=== PATIENT | female | born 1975 | race American Indian/Alaskan Native ===

== ENCOUNTER 2016-10-20 08:24 | Emergency (ER) | payer MEDICAID ==
[2016-10-20 09:01] LABS: Basophils % (Auto) 0.3 % (0.0-1.8); Eosinophils % (Auto) 0.1 % (0.0-4.3); Hematocrit 36.6 % (30.3-42.9); Hemoglobin 12.2 gm/dl (10.1-14.3); Mean Corpuscular HGB Conc 33 % (30-34); Mean Corpuscular Hemoglobin 30 pg (28-32); Mean Corpuscular Volume 91 fl (79-97); Platelet Count 205 K/mm3 (140-440); Red Blood Count 4.03 M/mm3 (3.65-5.03); Red Cell Distribution Width 13.5 % (13.2-15.2); White Blood Count 12.1 K/mm3 (4.5-11.0)
[2016-10-20 09:21] LABS: Albumin 3.4 g/dL (3.9-5); Albumin/Globulin Ratio 0.8 %; BUN/Creatinine Ratio 10.83; Bilirubin,Total 0.7 mg/dL (0.1-1.2); Calcium 8.6 mg/dL (8.4-10.2); Chloride 100.6 mmol/L (98-107); Potassium 3.2 mmol/L (3.6-5.0); Total Protein 7.5 g/dL (6.3-8.2)
[2016-10-20 10:25] LABS: Bilirubin,Urine NEG (Negative); Blood,Urine LG (Negative); Ketones,Urine NEG (Negative); Leukocyte Esterase,Urine LG (Negative); Mucus,Urine 3+ /HPF; Nitrite,Urine NEG (Negative)
[2016-10-20 10:26] LABS: RBC,Urine > 182.0 /HPF (0.0-6.0); WBC,Urine > 182.0 /HPF (0.0-6.0)
--- NOTE | 2016-10-20 14:40 | Cat Scan Report ---
CT scan of abdomen and pelvis without IV contrast: History: Flank pain. Kidney stone. Findings: Normal lung bases. Multiple circumscribed centimeter and subcentimeter hypodensities throughout the liver probably suggestive of multiple cysts or hamartomas. Less likely metastasis. Multiple calculi within contracted gallbladder. Normal pancreas and spleen. Normal adrenals. There is 2 mm calculus upper pole right kidney. There is 2 mm calculus upper pole left kidney and adjacent 2 mm calculus lower part upper pole left kidney. No evidence of hydronephrosis. Bladder not visualized and probably decompressed. Moderate amount of free intraperitoneal fluid in the cul-de-sac. No mass. Grossly bowel gas pattern normal with evidence of stool in colon. No evidence of appendicitis or diverticulitis. Impression: Circumscribed hypodensities throughout liver probably cysts or hamartomas and less likely metastatic disease. Multiple calculi in the gallbladder. Nonobstructing calculi right and left kidney. Moderate amount of fluid in the posterior cul-de-sac.
[2016-10-20] MEDS ORDERED: TORADOL IV ONE (19:03)
[2016-10-20] MEDS ORDERED: ZOFRAN IV ONE (19:03)
[2016-10-20] MEDS ORDERED: NACL 0.9% 1000 ML 1,000 ML IV ONE (19:03)
[2016-10-20] MEDS ORDERED: ROCEPHIN 1,000 MG in NACL 0.9% 50 ML IV ONE (19:07)
--- NOTE | 2016-10-20 19:47 | Admit Criteria Form ---
Admission Criteria Documentation: VOMITING Clinical Indications for Admission to Inpatient Care ( Place 'X' for any and all applicable criteria): Admission is indicated for 1 or more of the following(1)(2)(3): [ ]I. Complete or partial gastrointestinal obstruction [ ]II. Vomiting due to significant metabolic derangement (eg, severe hypercalcemia, diabetic ketoacidosis) [ ]III. Other cause of vomiting requiring hospitalization (eg, poisoning, increased intracranial pressure) [X ]IV. Inpatient admission required rather than observation care because of 1 or more of the following [ ]i) Hemodynamic instability [X ]ii) Vomiting that is severe or persistent indicated by 1 or more of the following 1) Numerous episodes of vomiting in past 24hours (eg, every 1 to 2 hours) [X] 2) Suggests severe underlying cause or complication ( eg, projectile, feculent, bilious, coffee ground, bloody) 3) Appropriate antiemetic treatment (eg, repeated oral or parenteral dosing) does not sufficiently reduce vomiting within 12 to 24 hours of treatment 4) Treatment regimen necessary to adequately control vomiting requires inpatient level of care (eg, not immediately available in outpatient setting) [ ]iii) Severe electrolyte abnormalities requiring inpatient care [ ]iv) Severe pain requiring acute inpatient management( Continuous or frequent (eg, every 2 to 4 hours) parental analgesics or analgesic regimen that can only be performed or initiated in inpatient setting) [ ]v) High fever or infection requiring inpatient admission as indicated by 1 or more of the following(7)(8): [ ]1) Appropriate outpatient or observation care antimicrobial treatment unavailable, not effective, or not feasible [ ]2) Documented bacteremia [ ]3) Temp >104.9 degrees F (40.5 degrees C) (oral) [ ]4) Temp >103.1 degrees F (39.5 C) (oral) or <96.8 degrees F (36 C) (rectal) that does not respond to all emergency treatment measures [ ]vi) Acute renal failure [ ]vii) IV fluid required rather than oral rehydration to replace significant on going losses (greater than 3 L/m2 per day) [ ]viii) Parenteral nutrition regimen that must be implemented on inpatient basis [ ]ix) Other condition, treatment or monitoring requiring inpatient admission Extended stay beyond goal length of stay may be needed for(1)(4): [ ]a) Severe vomiting [ ]b) Persistent vomiting, vital sign changes, severe electrolyte imbalance , or diagnosed cause of vomiting that requires continued hospitalization (eg, gastrointestinal obstruction , increased intracranial pressure) [ ]c) Surgery to treat identified causes of vomiting (eg, bowel obstruction , intracranial process) [ ]d) Comorbid illness that requires inpatient care (eg, acute heart failure , renal failure) [ ]e) Need for inpatient endoscopy The original [employer] content created by [employer] has been revised. The portions of the content which have been revised are identified through the use of italic text or in bold, and [facility] has neither reviewed nor approved the modified material. All other unmodified content is copyright [employer] [facility]. Please see references footnoted in the original [employer] [facility] edition 2016 Admission Criteria Met: Yes
[2016-10-20] MEDS ORDERED: ROCEPHIN/NS 1 GM/50 ML 1 GM/50 ML BAG IV ONE (20:00)
--- NOTE | 2016-10-20 21:42 | Emergency Department Report ---
Addendum entered and electronically signed by LEXX MINA NP 10/20/16 22:07: pt again refusing admission for further evaluation of renal stones, gall stones , and liver cyst, explain symptoms to return to ecc, pt currently tolerating po intake, without n/v, pt is a/o x 3 demonstrates decision making capacity, advises that she will follow up with urology and GI as directed , pt given strict instructions again to return to emergency if symptoms worsen. Original Note: Entered by ANDREW GUO, acting as scribe for LEXX MINA NP. <LEXX MINA. - Last Filed: 10/20/16 21:23> ED N/V/D HPI - General Chief complaint: Nausea/Vomiting/Diarrhea Stated complaint: VOMITING/BODY PAIN Time Seen by Provider: 10/20/16 18:41 Source: patient Mode of arrival: Ambulatory Limitations: No Limitations - History of Present Illness Initial comments: 41 y/o female with PMHx of HTN, presents to the ED c/o nausea that began 2 days ago. Associated symptoms include vomiting, loss of appetite and body aches but she denies diarrhea, abdominal pain, fever and chills. Pain is described as 8/ 10 on a severity scale. No alleviating or aggravating symptoms. NKDA. DAI complaint: nausea, vomiting Onset/Timin -: Sudden, days(s) Description of Vomiting: food contents Associated Abdominal Pain: No Location: flank Radiation: none Severity: moderate Quality: aching Consistency: constant Improves with: none Worsens with: none Context: other (hx renal stones and gallstones) Associated Symptoms: loss of appetite, nausea/vomiting, other (body aches, no abdominal pain, no diarrhea). denies: fever/chills - Related Data Previous Rx's Medication Instructions Recorded Last Taken Type Ciprofloxacin HCl [Ciprofloxacin 500 mg PO Q12HR #20 tab 10/20/16 Unknown Rx TAB] Omeprazole Magnesium [PriLOSEC Otc] 20 mg PO BID #60 tab 10/20/16 Unknown Rx Ondansetron [Zofran Odt] 4 mg PO Q8HR PRN #15 tab.rapdis 10/20/16 Unknown Rx Tamsulosin [Flomax] 0.4 mg PO QDAY #30 cap 10/20/16 Unknown Rx metroNIDAZOLE [Flagyl] 500 mg PO Q12HR #20 tab 10/20/16 Unknown Rx traMADol [Ultram] 50 mg PO Q6HR PRN #24 tablet 10/20/16 Unknown Rx Potassium Chloride [K-Dur] 20 meq PO BID #6 tab 10/21/16 Unknown Rx Allergies Allergy/AdvReac Type Severity Reaction Status Date / Time No Known Allergies Allergy Unverified 10/20/16 08:35 ED Review of Systems Comment: All other systems reviewed and negative Constitutional: other (body aches). denies: chills, fever Eyes: denies: eye pain, eye discharge, vision change ENT: denies: ear pain, throat pain Respiratory: denies: cough, shortness of breath, wheezing Cardiovascular: denies: chest pain, palpitations Endocrine: no symptoms reported Gastrointestinal: nausea, vomiting, other (loss of appetite ). denies: abdominal pain, diarrhea Genitourinary: urgency, frequency. denies: dysuria, hematuria, discharge Musculoskeletal: denies: back pain, joint swelling, arthralgia Skin: denies: rash, lesions Neurological: denies: headache, weakness, paresthesias Psychiatric: denies: anxiety, depression Hematological/Lymphatic: denies: easy bleeding, easy bruising ED Past Medical Hx - Past Medical History Hx Hypertension: Yes - Surgical History Additional Surgical History: LEFT KNEE SURGERY - Social History Smoking Status: Never Smoker Substance Use Type: None - Medications Home Medications: Home Medications Medication Instructions Recorded Confirmed Last Taken Type Ciprofloxacin HCl [Ciprofloxacin 500 mg PO Q12HR #20 tab 10/20/16 Unknown Rx TAB] Omeprazole Magnesium [PriLOSEC Otc] 20 mg PO BID #60 tab 10/20/16 Unknown Rx Ondansetron [Zofran Odt] 4 mg PO Q8HR PRN #15 tab.rapdis 10/20/16 Unknown Rx Tamsulosin [Flomax] 0.4 mg PO QDAY #30 cap 10/20/16 Unknown Rx metroNIDAZOLE [Flagyl] 500 mg PO Q12HR #20 tab 10/20/16 Unknown Rx traMADol [Ultram] 50 mg PO Q6HR PRN #24 tablet 10/20/16 Unknown Rx Potassium Chloride [K-Dur] 20 meq PO BID #6 tab 10/21/16 Unknown Rx ED Physical Exam - General Limitations: No Limitations General appearance: alert, other (appears ill ) - Head Head exam: Present: atraumatic, normocephalic, normal inspection - Eye Eye exam: Present: normal appearance, PERRL, EOMI Pupils: Present: normal accommodation - ENT ENT exam: Present: normal exam, normal orophraynx, mucous membranes moist - Neck Neck exam: Present: normal inspection, full ROM. Absent: tenderness, lymphadenopathy, thyromegaly - Respiratory Respiratory exam: Present: normal lung sounds bilaterally. Absent: wheezes, rales, rhonchi, stridor, chest wall tenderness, accessory muscle use, decreased breath sounds, prolonged expiratory - Cardiovascular Cardiovascular Exam: Present: regular rate, normal rhythm, normal heart sounds. Absent: systolic murmur, diastolic murmur, rubs, gallop - GI/Abdominal GI/Abdominal exam: Present: soft, normal bowel sounds, other (bilat postior CVA tenderness ). Absent: distended, tenderness, guarding, rebound, rigid, mass, bruit, hernia - Rectal Rectal exam: Present: deferred - External exam: Present: other (deferred) - Extremities Exam Extremities exam: Present: normal inspection, full ROM, normal capillary refill. Absent: tenderness, pedal edema, joint swelling, calf tenderness - Back Exam Back exam: Present: normal inspection, full ROM, CVA tenderness (R), CVA tenderness (L). Absent: muscle spasm, paraspinal tenderness, vertebral tenderness, rash noted - Neurological Exam Neurological exam: Present: alert, oriented X3, CN II-XII intact - Psychiatric Psychiatric exam: Present: normal affect, normal mood - Skin Skin exam: Present: warm, dry, intact, normal color. Absent: rash ED Course Vital Signs 10/20/16 10/20/16 08:39 21:50 Temperature 98.3 F 99.2 F Pulse Rate 80 89 Respiratory 15 16 Rate Blood Pressure 96/67 Blood Pressure 106/63 [Right] O2 Sat by Pulse 100 98 Oximetry - Reevaluation(s) Reevaluation #1: pt advises symptoms relieved, pt now tolerate dinner meal without n/v no abdominal , pain , NS 1000 x 2, rocephin 1gm ivpb, ketorolac, and zofran, plan will dc with cipro 500 mg po bid, flagyl 500 mg po bid , omeprazole 20 mg po bid , flomax daily, naproxen prn pain, zofran prn nausea, pt verbalized agreement and understanding with discharge plan. will follow up with Urology follow up with Raghavendra Musa [phone] and [facility] [phone] 10/20/16 21:24 ED Medical Decision Making - Lab Data Result diagrams: 10/20/16 08:46 10/20/16 08:46 Laboratory Tests 10/20/16 10/20/16 10/20/16 08:46 08:46 08:46 WBC 12.1 H RBC 4.03 Hgb 12.2 Hct 36.6 MCV 91 MCH 30 MCHC 33 RDW 13.5 Plt Count 205 Lymph % (Auto) 11.2 L [place] % (Auto) 12.5 H Eos % (Auto) 0.1 Baso % (Auto) 0.3 Lymph # 1.3 [place] # 1.5 H Eos # 0.0 Baso # 0.0 Seg Neutrophils % 75.9 H Seg Neutrophils # 9.2 H Sodium 138 Potassium 3.2 L Chloride 100.6 Carbon Dioxide 24 Anion Gap 17 BUN 13 Creatinine 1.2 Estimated GFR 49 BUN/Creatinine Ratio 10.83 Glucose 113 H Calcium 8.6 Total Bilirubin 0.70 AST 15 ALT 15 Alkaline Phosphatase 48 Total Protein 7.5 Albumin 3.4 L Albumin/Globulin Ratio 0.8 Lipase 31 HCG, Qual Negative Urine Color Urine Turbidity Urine pH Ur Specific [place] Urine Protein Urine Glucose (UA) Urine Ketones Urine Blood Urine Nitrite Urine Bilirubin Urine Urobilinogen Ur Leukocyte Esterase Urine WBC (Auto) Urine RBC (Auto) U Epithel Cells (Auto) Urine WBC Clumps Urine Mucus 10/20/16 09:55 WBC RBC Hgb Hct MCV MCH MCHC RDW Plt Count Lymph % (Auto) [place] % (Auto) Eos % (Auto) Baso % (Auto) Lymph # [place] # Eos # Baso # Seg Neutrophils % Seg Neutrophils # Sodium Potassium Chloride Carbon Dioxide Anion Gap BUN Creatinine Estimated GFR BUN/Creatinine Ratio Glucose Calcium Total Bilirubin AST ALT Alkaline Phosphatase Total Protein Albumin Albumin/Globulin Ratio Lipase HCG, Qual Urine Color [place] Urine Turbidity Turbid Urine pH 5.0 Ur Specific [place] 1.024 Urine Protein 100 mg/dl Urine Glucose (UA) Neg Urine Ketones Neg Urine Blood Lg Urine Nitrite Neg Urine Bilirubin Neg Urine Urobilinogen 4.0 Ur Leukocyte Esterase Lg Urine WBC (Auto) > 182.0 H Urine RBC (Auto) > 182.0 U Epithel Cells (Auto) 29.0 H Urine WBC Clumps 3+ Urine Mucus 3+ - Radiology Data Radiology results: report reviewed circumscribed hpodensities throughout liver probaly cysts or hamartomas nd less lilely metastic disease Multiple Cacluli in the gallbladder Nonobstructing calculi right and left kidney Moderate amount of fluid in the posterior cul-de-sac - Medical Decision Making 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 5 days, with last po intake yesterday , last n/v this am, pt denies abdominal pain , endorse bilat flank pain , there is no dysuria does endorse frequency and urgency pt is not currently followed by urology or GI , exam: pt appear ill, uncomfortable, nontoxic exam: abd: bs hypreactive throughout abd soft nontender no rebound no bruit no signs, no hernia , no super pubic pain , bilat pos cva tenderness is noted, pt denies abdominal pain , ua: turbid, wbc, bacteria, leukocyts, cbc: wbc :12, K: 3.2, CT: gallstones, renal stones nonobstructing, liver cysts, Plan: hydration , zofran, ketorolac, rocephin IVPB, po challenge if symptoms improved will dc with GI and urology follow up , if pt cannot tolerate po intake with admit dx: intractable n/v , cholelithiasis, renal calculi ED Disposition Clinical Impression: Hypokalemia Disposition: DC-01 TO HOME OR SELFCARE Is pt being admited?: No Does the pt Need Aspirin: No Condition: Good Instructions: Biliary Colic (ED), Kidney Stones (ED) Additional Instructions: follow up with urology Dr. Mamadou Musa [phone] and [facility] [phone] Prescriptions: Ciprofloxacin HCl [Ciprofloxacin TAB] 500 mg PO Q12HR #20 tab metroNIDAZOLE [Flagyl] 500 mg PO Q12HR #20 tab Omeprazole Magnesium [PriLOSEC Otc] 20 mg PO BID #60 tab Ondansetron [Zofran Odt] 4 mg PO Q8HR PRN #15 tab.rapdis PRN Reason: Nausea Potassium Chloride [K-Dur] 20 meq PO BID #6 tab Tamsulosin [Flomax] 0.4 mg PO QDAY #30 cap traMADol [Ultram] 50 mg PO Q6HR PRN #24 tablet PRN Reason: Pain Referrals: PRIMARY CARE,MD [Primary Care Provider] - 3-5 Days Forms: Work/School Release Form(ED) Time of Disposition: 21:38 <ISAC STEWARD - Last Filed: 10/21/16 02:37> ED Medical Decision Making - Lab Data Result diagrams: 10/20/16 08:46 10/20/16 08:46 - Medical Decision Making Patient has hypokalemia did not receive by mouth potassium in the ED. I have written a prescription and will instruct charge nurse to call in a.m. call in prescription or have patient return to [facility] potassium prescription. This documentation as recorded by the SARI winston ELIZABETH,accurately reflects the service I personally performed and the decisions made by me, LEXX MINA NP.
[2016-10-20 22:16] VITALS: BP 106/63
== END 2016-10-20 22:33 | disposition home or self-care (01) ==
LOC: ED 08:24
DX: E87.6 Hypokalemia (principal); I10 Essential (primary) hypertension
CPT/HCPCS: 36415; 74176; 80053; 81001; 83690; 84703; 85025; 96365; 96375; 99284; J0696; J1885; J2405; J7030

== ENCOUNTER 2016-10-30 20:50 | Emergency (ER) | payer MEDICAID ==
--- NOTE | 2016-10-31 01:14 | XRay Report ---
FINAL REPORT PROCEDURE: XR ELBOW 3 LT TECHNIQUE: LEFT elbow radiographs, including AP, lateral, and oblique views. CPT 08038 HISTORY: left elbow pain after fall COMPARISON: No prior studies are available for comparison. FINDINGS: Fracture (s) and/or Dislocation(s): There is no acute fracture. There is deformity of the radial head which could be due to old fracture. There are spurs of the distal humerus and the proximal ulna and the radial head.. Alignment: Normal . 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 There is no joint effusion.. Soft tissues: Normal . Bone mineralization: Normal . Foreign bodies: None . IMPRESSION: Chronic changes as described. No definite acute fracture is seen. There is no joint dislocation or effusion.
--- NOTE | 2016-10-31 01:17 | XRay Report ---
FINAL REPORT PROCEDURE: XR KNEE 3V RT TECHNIQUE: Right knee radiographs, AP, lateral and sunrise views. CPT 64484 HISTORY: Right knee swollen and pain after fall COMPARISON: No prior studies are available for comparison. FINDINGS: Fracture (s) and/or Dislocation(s): None . Alignment: Normal . Joint space(s): Normal . Soft tissues: Normal . Bone mineralization: Normal . Foreign bodies: None . IMPRESSION: Normal Examination.
[2016-10-31 02:14] VITALS: BP 146/88
--- NOTE | 2016-10-31 03:15 | Emergency Department Report ---
ED Fall HPI - General Chief Complaint: Fall Stated Complaint: RT KNEE PAIN/SWOLLEN Time Seen by Provider: 10/31/16 02:08 Source: patient, family Mode of arrival: Ambulatory - History of Present Illness Initial Comments: Patient here reported that she fell yesterday while standing on a airplane seat clean in an overhead bin and slipped and fell. She reports her left elbow surgeon at 7 out of 10. Patient states she is having right knee pain and swelling 8 out of 10. No [id number] medication taken. She said her right knee is bruised and she bruises easily. Denies any head injury or headache. Denies any back injury or back pain. Pain is achy. MD Complaint: fall Onset/Timin -: days(s) Fall From: standing When Fall Occurred: # days CLIENT RELATIONSHIP CONSULTANT (1) Fall Witnessed: yes, by bystander Place Fall Occurred: work Loss of Consciousness: none Prolonged Down Time?: no Symptoms Prior to Fall: none Location - Extremities: Left: Elbow (pain and swelling), Right: Knee (pain and bruising) Severity: severe Severity scale (0 -10): 8 Quality: sharp, aching Context: tripped/slipped Associated Symptoms: denies: headache, neck pain, numbness, weakness, chest paint, shortness of breath, abdominal pain, hematuria, unable to walk, lightheaded, vertigo, confusion - Related Data Previous Rx's Medication Instructions Recorded Last Taken Type Ciprofloxacin HCl [Ciprofloxacin 500 mg PO Q12HR #20 tab 10/20/16 Unknown Rx TAB] Omeprazole Magnesium [PriLOSEC Otc] 20 mg PO BID #60 tab 10/20/16 Unknown Rx Ondansetron [Zofran Odt] 4 mg PO Q8HR PRN #15 tab.rapdis 10/20/16 Unknown Rx Tamsulosin [Flomax] 0.4 mg PO QDAY #30 cap 10/20/16 Unknown Rx metroNIDAZOLE [Flagyl] 500 mg PO Q12HR #20 tab 10/20/16 Unknown Rx traMADol [Ultram] 50 mg PO Q6HR PRN #24 tablet 10/20/16 Unknown Rx Potassium Chloride [K-Dur] 20 meq PO BID #6 tab 10/21/16 Unknown Rx Ibuprofen [Motrin] 600 mg PO Q8H PRN #15 tablet 10/31/16 Unknown Rx Allergies Allergy/AdvReac Type Severity Reaction Status Date / Time No Known Allergies Allergy Unverified 10/20/16 08:35 ED Review of Systems ROS: Stated complaint: RT KNEE PAIN/SWOLLEN Other details as noted in HPI Comment: All other systems reviewed and negative Constitutional: no symptoms reported Eyes: denies: vision change ENT: denies: epistaxis Respiratory: no symptoms reported Cardiovascular: denies: chest pain, palpitations, edema, syncope Gastrointestinal: denies: abdominal pain, nausea, vomiting Musculoskeletal: joint swelling, arthralgia. denies: back pain, myalgia Skin: other (bruise). denies: rash Neurological: abnormal gait (patient limp into right lower extremity due to knee pain). denies: headache, weakness, numbness, paresthesias Hematological/Lymphatic: easy bruising ED Past Medical Hx - Past Medical History Previous Medical History?: Yes Hx Hypertension: Yes Hx Kidney Stones: Yes - Surgical History Past Surgical History?: Yes Additional Surgical History: LEFT KNEE SURGERY - Family History Family history: hypertension - Social History Smoking Status: Never Smoker Substance Use Type: None - Medications Home Medications: Home Medications Medication Instructions Recorded Confirmed Last Taken Type Ciprofloxacin HCl [Ciprofloxacin 500 mg PO Q12HR #20 tab 10/20/16 Unknown Rx TAB] Omeprazole Magnesium [PriLOSEC Otc] 20 mg PO BID #60 tab 10/20/16 Unknown Rx Ondansetron [Zofran Odt] 4 mg PO Q8HR PRN #15 tab.rapdis 10/20/16 Unknown Rx Tamsulosin [Flomax] 0.4 mg PO QDAY #30 cap 10/20/16 Unknown Rx metroNIDAZOLE [Flagyl] 500 mg PO Q12HR #20 tab 10/20/16 Unknown Rx traMADol [Ultram] 50 mg PO Q6HR PRN #24 tablet 10/20/16 Unknown Rx Potassium Chloride [K-Dur] 20 meq PO BID #6 tab 10/21/16 Unknown Rx Ibuprofen [Motrin] 600 mg PO Q8H PRN #15 tablet 10/31/16 Unknown Rx ED Physical Exam - General Limitations: Language Barrier General appearance: alert, in no apparent distress - Head Head exam: Present: atraumatic, normocephalic, normal inspection - Eye Eye exam: Present: normal appearance, PERRL, EOMI. Absent: periorbital swelling , periorbital tenderness Pupils: Present: normal accommodation - Neck Neck exam: Present: normal inspection, full ROM. Absent: tenderness, lymphadenopathy - Respiratory Respiratory exam: Present: normal lung sounds bilaterally. Absent: respiratory distress, chest wall tenderness - Cardiovascular Cardiovascular Exam: Present: regular rate, normal rhythm, normal heart sounds - Expanded Upper Extremity Exam Left Shoulder Exam: Present: normal inspection, full ROM. Absent: tenderness, swelling, abrasion, laceration, ecchymosis, deformity, crepidus, dislocation, erythema, tenderness over AC joint Upper Arm exam: Present: normal inspection, full ROM. Absent: tenderness, swelling, abrasion, laceration, ecchymosis, deformity, crepidus, dislocation, erythema Elbow exam: Present: normal inspection, full ROM, tenderness, pain w/ pronation/ supination, tenderness over radial head. Absent: swelling, abrasion, laceration , ecchymosis, deformity, erythema, effusion Forearm Wrist exam: Present: normal inspection, full ROM. Absent: tenderness, swelling, abrasion, laceration, ecchymosis, deformity, crepidus, dislocation, erythema, tenderness over anatomical snuff box, pain with axial thumb loading Hand Wrist exam: Present: normal inspection, full ROM. Absent: tenderness, swelling, abrasion, laceration, ecchymosis, deformity, crepidus, dislocation, erythema, amputation, nail avulsion, subungual hematoma Neuro motor exam: Present: wrist extension intact, thumb opposition intact, thumb IP flexion intact, thumb adduction intact, fingers 2-5 abduction intact Neurosensory exam: Present: 2-point discrimination, radial nerve intact, ulnar nerve intact, median nerve intact Vascular: Present: normal capillary refill, radial pulse, brachial pulse, ulnar pulse. Absent: vascular compromise, Pallo, pulse deficit radial art, pulse deficit ulnar art, pulse deficit brachial art - Expanded Lower Extremity Exam Right Hip exam: Present: normal inspection, full ROM, pelvic stability. Absent: tenderness, swelling, abrasion, laceration, ecchymosis, deformity, crepidus, dislocation, erythema, external rotation, internal rotation, shortening Upper Leg exam: Present: normal inspection, full ROM. Absent: tenderness, swelling, abrasion, laceration, ecchymosis, deformity, crepidus, dislocation, erythema Knee exam: Present: normal inspection, tenderness, ecchymosis (right inner lateral knee), pain w/ pronation/supination, full knee extension. Absent: full ROM (Limited range of motion to right knee. Patient able to flex and extend but she said it is very painful. Full flexion and extension to right knee with passive range of motion), swelling, abrasion, laceration, deformity, crepidus, dislocation, erythema, effusion, pain/laxity with valgus, pain/laxity with varus Lower Leg exam: Present: normal inspection, full ROM. Absent: tenderness, swelling, abrasion, laceration, ecchymosis, deformity, crepidus, dislocation, erythema, palpable cord, Marlin's sign Ankle exam: Present: normal inspection, full ROM. Absent: tenderness, swelling , abrasion, laceration, ecchymosis, deformity, crepidus, dislocation, erythema Foot/Toe exam: Present: normal inspection, full ROM. Absent: tenderness, swelling, abrasion, laceration, ecchymosis, deformity, crepidus, dislocation, erythema, amputation, puncture wound, foreign body, calcaneal tenderness, tenderness at base of 5th metatarsal, nail avulsion, subungual hematoma Neuro vascular tendon exam: Present: no vascular compromise. Absent: pulse deficit, abnormal cap refill, motor deficit, sensory deficit, tendon deficit, extremity cold to touch, pallor, abnormal 2-point discrimination, decreased fine /light touch, foot drop, peroneal nerve deficit, significant pain with passive ROM of distal joint Gait: Positive: observed and limited by pain - Back Exam Back exam: Present: normal inspection, full ROM. Absent: tenderness, CVA tenderness (R), CVA tenderness (L), muscle spasm, paraspinal tenderness, vertebral tenderness, rash noted - Neurological Exam Neurological exam: Present: alert, oriented X3, abnormal gait (patient limp in due to knee pain), reflexes normal. Absent: motor sensory deficit - Psychiatric Psychiatric exam: Present: normal affect, normal mood - Skin Skin exam: Present: warm, dry, ecchymosis (bruising noted to right inner knee. No induration. Nontender to palpate) ED Course Vital Signs 10/30/16 10/31/16 22:51 02:13 Temperature 98.1 F Pulse Rate 67 60 Respiratory 18 18 Rate Blood Pressure 145/93 Blood Pressure 146/88 [Left] O2 Sat by Pulse 99 97 Oximetry - Reevaluation(s) Reevaluation #1: 10/31/16 03:26 Patient given Pratt 5/325 2 tablets in emergency room for pain. ED Medical Decision Making - Radiology Data Radiology results: report reviewed X-ray of right knee reveal no acute fracture or dislocation. X-ray of left elbow reveals no definite acute fractures seen. There is no joint dislocation or effusion. There are spurs of the distal humerus and proximal ulna and the radial head. There is deformity of the radial head which could be due to old fracture but patient denies any fracture. - Medical Decision Making ED course: Patient here status post fall yesterday at work. He is here with arthralgia to her left elbow and right knee. He also has bruising to right inner knee. I discussed the patient that her test was negative and x- ray of left elbow and right knee reveal no acute fracture. I discussed the patient she needs to rest, ice, elevate area for the next 72 hours. Patient was given Pratt 5/325 mg 2 tablets in emergency room which managed her pain and she was discharged home with her family in stable condition with prescription for Motrin and to follow-up with orthopedic doctor in 2 days. Critical care attestation.: If time is entered above; I have spent that time in minutes in the direct care of this critically ill patient, excluding procedure time. ED Disposition Clinical Impression: Arthralgia of multiple sites Accidental fall Qualifiers: Encounter type: initial encounter Qualified Code(s): W19.XXXA - Unspecified fall, initial encounter Traumatic ecchymosis of right knee Qualifiers: Encounter type: initial encounter Qualified Code(s): S80.01XA - Contusion of right knee, initial encounter Disposition: DC-01 TO HOME OR SELFCARE Is pt being admited?: No Does the pt Need Aspirin: No Condition: Stable Instructions: Arthralgia (ED), Knee Pain (ED), Knee Exercises (GEN), RICE Therapy (ED) Additional Instructions: Please take Motrin as prescribed for pain as needed. Rest ice and elevate affected area. Prescriptions: Ibuprofen [Motrin] 600 mg PO Q8H PRN #15 tablet PRN Reason: Pain Referrals: PRIMARY CARE, [Primary Care Provider] - 2-3 Days MARGARET HEREDIA MD [Staff Physician] - 11/02/16 Forms: Accompanied Note, Work/School Release Form(ED)
[2016-10-31] MEDS ORDERED: NORCO 5/325 PO ONE (03:19)
== END 2016-10-31 03:40 | disposition home or self-care (01) ==
LOC: ED 20:50
DX: S80.01XA Contusion of right knee, initial encounter (principal); M25.522 Pain in left elbow; I10 Essential (primary) hypertension; W18.30XA Fall on same level, unspecified, initial encounter; Y93.9 Activity, unspecified; Y92.9 Unspecified place or not applicable; Y99.9 Unspecified external cause status
CPT/HCPCS: 81025; 99284

== ENCOUNTER 2017-07-01 09:59 | Emergency (ER) | payer MEDICAID ==
[2017-07-01] MEDS ORDERED: ASPIRIN PO ONE (10:09)
[2017-07-01 10:38] LABS: Basophils % (Auto) 0.5 % (0.0-1.8); Eosinophils # (Auto) 0.1 K/mm3 (0.0-0.4); Hematocrit 36.5 % (30.3-42.9); Lymphocytes # (Auto) 2.4 K/mm3 (1.2-5.4); Lymphocytes % (Auto) 47.3 % (13.4-35.0); Mean Corpuscular HGB Conc 33 % (30-34); Mean Corpuscular Hemoglobin 30 pg (28-32); Mean Corpuscular Volume 91 fl (79-97); Monocytes # (Auto) 0.5 K/mm3 (0.0-0.8); Monocytes % (Auto) 10.2 % (0.0-7.3); Platelet Count 215 K/mm3 (140-440)
[2017-07-01 10:51] LABS: BUN/Creatinine Ratio 14; Blood Urea Nitrogen 14 mg/dL (7-17); Calcium 8.6 mg/dL (8.4-10.2); Hemolysis Index 6
[2017-07-01 16:05] VITALS: BP 142/88
--- NOTE | 2017-07-01 16:36 | Emergency Department Report ---
ED Chest Pain HPI - General Chief Complaint: Chest Pain Stated Complaint: CP Time Seen by Provider: 07/01/17 16:12 Source: patient Mode of arrival: Ambulatory Limitations: No Limitations - History of Present Illness Initial Comments: 42 year-old female presents to the emergency department with complaint of sharp, short left-sided chest pains have been going on for the past several months. It usually happens about 1 time per day. The patient also says that when she is laying down sometimes she has some type of a sensation in the chest which she feels like it is going to happen again. She denies any shortness of breath, fever, nausea, vomiting, back pain or diaphoresis. It happened today while at work and she had to sit down and rest and then was sent in by her boss. She denies any known aggravating or alleviating factors. She tries taking a Annamarie aspirin but the symptoms do occur just about daily. She has a past medical history of hypertension. She denies any tobacco or illicit drug use or abuse. She has a primary care physician but says that she has not seen him in a while. No recent travel or sick contacts at home. She denies any family history of early cardiac disease as she says that her mother from alcoholism in her father from cancer. Severity scale (0 -10): 0 - Related Data Previous Rx's Medication Instructions Recorded Last Taken Type Ciprofloxacin HCl [Ciprofloxacin 500 mg PO Q12HR #20 tab 10/20/16 Unknown Rx TAB] Omeprazole Magnesium [PriLOSEC Otc] 20 mg PO BID #60 tab 10/20/16 Unknown Rx Ondansetron [Zofran Odt] 4 mg PO Q8HR PRN #15 tab.rapdis 10/20/16 Unknown Rx Tamsulosin [Flomax] 0.4 mg PO QDAY #30 cap 10/20/16 Unknown Rx metroNIDAZOLE [Flagyl] 500 mg PO Q12HR #20 tab 10/20/16 Unknown Rx traMADol [Ultram] 50 mg PO Q6HR PRN #24 tablet 10/20/16 Unknown Rx Potassium Chloride [K-Dur] 20 meq PO BID #6 tab 10/21/16 Unknown Rx Ibuprofen [Motrin] 600 mg PO Q8H PRN #15 tablet 10/31/16 Unknown Rx Allergies Allergy/AdvReac Type Severity Reaction Status Date / Time No Known Allergies Allergy Verified 07/01/17 10:04 Heart Score - HEART Score History: Slightly suspicious EKG: Normal Age: < 45 Risk factors: 1-2 risk factors Troponin: < normal limit HEART Score: 1 - Critical Actions Critical Actions: 0-3 pts:0.9-1.7%risk of adverse cardiac event.Candidate for discharge ED Review of Systems ROS: Stated complaint: CP Other details as noted in HPI Comment: All other systems reviewed and negative Constitutional: denies: chills, fever Eyes: denies: eye pain, eye discharge, vision change ENT: denies: ear pain, throat pain Respiratory: denies: cough, shortness of breath, wheezing Cardiovascular: chest pain. denies: edema Gastrointestinal: denies: abdominal pain, nausea, diarrhea Genitourinary: denies: urgency, dysuria, discharge Musculoskeletal: denies: back pain, joint swelling, arthralgia Skin: denies: rash, lesions Neurological: denies: headache, weakness, paresthesias ED Past Medical Hx - Past Medical History Previous Medical History?: Yes Hx Hypertension: Yes Hx Kidney Stones: Yes - Surgical History Additional Surgical History: LEFT KNEE SURGERY - Social History Smoking Status: Never Smoker Substance Use Type: Alcohol - Medications Home Medications: Home Medications Medication Instructions Recorded Confirmed Last Taken Type Ciprofloxacin HCl [Ciprofloxacin 500 mg PO Q12HR #20 tab 10/20/16 Unknown Rx TAB] Omeprazole Magnesium [PriLOSEC Otc] 20 mg PO BID #60 tab 10/20/16 Unknown Rx Ondansetron [Zofran Odt] 4 mg PO Q8HR PRN #15 tab.rapdis 10/20/16 Unknown Rx Tamsulosin [Flomax] 0.4 mg PO QDAY #30 cap 10/20/16 Unknown Rx metroNIDAZOLE [Flagyl] 500 mg PO Q12HR #20 tab 10/20/16 Unknown Rx traMADol [Ultram] 50 mg PO Q6HR PRN #24 tablet 10/20/16 Unknown Rx Potassium Chloride [K-Dur] 20 meq PO BID #6 tab 10/21/16 Unknown Rx Ibuprofen [Motrin] 600 mg PO Q8H PRN #15 tablet 10/31/16 Unknown Rx ED Physical Exam - General Limitations: No Limitations - Other Other exam information: GENERAL: The patient is well-developed well-nourished. HENT: Normocephalic. Atraumatic. Patient has moist mucous membranes. EYES: Extraocular motions are intact. Pupils equal reactive to light bilaterally. NECK: Supple. Trachea is midline. CHEST/LUNGS: Clear to auscultation. There is no respiratory distress noted. HEART/CARDIOVASCULAR: Regular. There is no tachycardia. There is no murmur. ABDOMEN: Abdomen is soft, nontender. Patient has normal bowel sounds. There is no abdominal distention. SKIN: Skin is warm and dry. NEURO: The patient is awake, alert, and oriented. The patient is cooperative. The patient has no focal neurologic deficits. The patient has normal speech. MUSCULOSKELETAL: There is no tenderness or deformity. There is no limitation range of motion. There is no evidence of acute injury. ED Course Vital Signs 07/01/17 07/01/17 07/01/17 10:05 16:04 16:05 Temperature 98.6 F Pulse Rate 62 54 L Respiratory 16 13 13 Rate Blood Pressure 136/88 Blood Pressure 142/88 [Left] O2 Sat by Pulse 100 100 100 Oximetry IAN score - Ian Score Age > 65: (0) No Aspirin use within the Past 7 Days: (0) No 3 or more CAD Risk Factors: (0) No 2 or more Angina events in past 24 hrs: (0) No Known CAD with more than 50% Stenosis: (0) No Elevated Cardiac Markers: (0) No ST Deviation Greater than 0.5mm: (0) No IAN Score: 0 ED Medical Decision Making - Lab Data Result diagrams: 07/01/17 10:26 07/01/17 10:26 - EKG Data -: EKG Interpreted by Nd EKG shows normal: sinus rhythm, axis, intervals, QRS complexes (LVH), ST-T waves Rate: bradycardia (57 bpm) - EKG Data When compared to previous EKG there are: previous EKG unavailable Interpretation: other (Sinus Jaylan at 57, LVH) - Radiology Data Radiology results: image reviewed interpreted by me: Chest x-ray does not show any acute process. There are no pleural effusions, obvious pneumonia and there is no pneumothorax. - Medical Decision Making Patient presents with some chronic intermittent sharp short chest pains. EKG does not show any signs of ST elevation CT, ischemia or dysrhythmia. Labs of have been unremarkable including negative troponins 3. The patient is very low on the heart score criteria and has a IAN score of one of her pain is considered angina and 0 if not. She is low on the well's score criteria and negative for the pulmonary embolism rule out criteria. She is currently not having any chest pain and has not had any since being in the emergency department. Chest x-ray did not show any acute process including no pleural effusions, pneumonia or pneumothorax. The patient appears safe for discharge home at this time and has been given a referral for cardiology. She has been encouraged to return to the emergency Department with any worsening of her symptoms or any acute distress. - Differential Diagnosis costochondritis, GERD, pneumonia, CT Critical Care Time: No Critical care attestation.: If time is entered above; I have spent that time in minutes in the direct care of this critically ill patient, excluding procedure time. ED Disposition Clinical Impression: Intermittent chest pain Disposition: DC-01 TO HOME OR SELFCARE Is pt being admited?: No Condition: Stable Instructions: Chest Pain (ED), Return to Work Instructions (ED) Additional Instructions: Please follow-up with your primary care physician in the next few days. I have given you a referral for a local remedial masseur, Dr. Diaz, to follow up regarding your intermittent sharp left chest pains. Return to the emergency Department with any worsening of her symptoms or any acute distress. Referrals: PRIMARY CAREMD [Primary Care Provider] - ELAINE KHAN MD [Staff Physician] - ARIELLE Forms: Work/School Release Form(ED) Time of Disposition: 17:24
--- NOTE | 2017-07-01 19:27 | XRay Report ---
FINAL REPORT PROCEDURE: XR CHEST 1V AP TECHNIQUE: Chest radiograph anteroposterior view. CPT 50630 HISTORY: CP COMPARISON: No prior studies are available for comparison. FINDINGS: Heart: Normal. Mediastinum/Vessels: Normal. Lungs/Pleural space: Normal. Bony thorax: No acute osseous abnormality. Life support devices: None. IMPRESSION: No acute cardiopulmonary abnormality.
== END 2017-07-01 17:46 | disposition home or self-care (01) ==
LOC: ED 09:59
DX: R07.89 Other chest pain (principal); I10 Essential (primary) hypertension
CPT/HCPCS: 36415; 71045; 80048; 84484; 84703; 85025; 93005; 93010; 99284

== ENCOUNTER 2017-07-30 00:06 | Emergency (ER) | payer MEDICAID ==
[2017-07-30 00:28] VITALS: BP 139/102
[2017-07-30 00:51] LABS: Eosinophils # (Auto) 0.2 K/mm3 (0.0-0.4); Eosinophils % (Auto) 3.8 % (0.0-4.3); Hematocrit 33.4 % (30.3-42.9); Hemoglobin 11.2 gm/dl (10.1-14.3); Lymphocytes # (Auto) 2.1 K/mm3 (1.2-5.4); Lymphocytes % (Auto) 42.5 % (13.4-35.0); Mean Corpuscular HGB Conc 33 % (30-34); Mean Corpuscular Hemoglobin 30 pg (28-32); Mean Corpuscular Volume 90 fl (79-97); Monocytes # (Auto) 0.5 K/mm3 (0.0-0.8); Platelet Count 203 K/mm3 (140-440); Red Cell Distribution Width 14.1 % (13.2-15.2)
[2017-07-30 00:56] LABS: BUN/Creatinine Ratio 15; Blood Urea Nitrogen 12 mg/dL (7-17); Calcium 8.4 mg/dL (8.4-10.2); Hemolysis Index 11
[2017-07-30 10:01] LABS: HCG Qualitative,Urine Negative (Negative)
--- NOTE | 2017-07-30 10:23 | Emergency Department Report ---
ED Chest Pain HPI - General Chief Complaint: Chest Pain Stated Complaint: CHEST PAIN Time Seen by Provider: 07/30/17 09:39 Source: patient Mode of arrival: Ambulatory Limitations: No Limitations - History of Present Illness Initial Comments: Ms. Chang is a 42-year-old healthy female who presents with 1 month of episodic chest pain. She has sharp left lower chest pain just under her breast. It happens intermittently approximately 1-2 times per day. +sharp piercing pain and last 1-2 seconds. She denies recent breath. She denies palpitations. Denies headache. Denies fever. She states that she drinkds 8 cups of soda daily. She does not smoke tobacco. No family history of cardiac disease. There is a family history of cancer. MD Complaint: chest pain -: Sudden, month(s) (1) Pain Location: left chest Severity: moderate Quality: sharp Consistency: intermittent Improves With: rest - Related Data Previous Rx's Medication Instructions Recorded Last Taken Type Ciprofloxacin HCl [Ciprofloxacin 500 mg PO Q12HR #20 tab 10/20/16 Unknown Rx TAB] Omeprazole Magnesium [PriLOSEC Otc] 20 mg PO BID #60 tab 10/20/16 Unknown Rx Ondansetron [Zofran Odt] 4 mg PO Q8HR PRN #15 tab.rapdis 10/20/16 Unknown Rx Tamsulosin [Flomax] 0.4 mg PO QDAY #30 cap 10/20/16 Unknown Rx metroNIDAZOLE [Flagyl] 500 mg PO Q12HR #20 tab 10/20/16 Unknown Rx traMADol [Ultram] 50 mg PO Q6HR PRN #24 tablet 10/20/16 Unknown Rx Potassium Chloride [K-Dur] 20 meq PO BID #6 tab 10/21/16 Unknown Rx Ibuprofen [Motrin] 600 mg PO Q8H PRN #15 tablet 10/31/16 Unknown Rx Allergies Allergy/AdvReac Type Severity Reaction Status Date / Time No Known Allergies Allergy Verified 07/01/17 10:04 Heart Score - HEART Score History: Slightly suspicious EKG: Normal Age: < 45 Risk factors: No known risk factors Troponin: < normal limit HEART Score: 0 ED Review of Systems ROS: Stated complaint: CHEST PAIN Other details as noted in HPI Comment: All other systems reviewed and negative Constitutional: denies: chills, fever Eyes: denies: eye pain, eye discharge, vision change ENT: denies: ear pain, throat pain Respiratory: denies: cough, shortness of breath, wheezing Cardiovascular: denies: chest pain, palpitations Endocrine: no symptoms reported Gastrointestinal: denies: abdominal pain, nausea, diarrhea Genitourinary: denies: urgency, dysuria, discharge Musculoskeletal: denies: back pain, joint swelling, arthralgia Skin: denies: rash, lesions Neurological: denies: headache, weakness, paresthesias Psychiatric: denies: anxiety, depression Hematological/Lymphatic: denies: easy bleeding, easy bruising ED Past Medical Hx - Past Medical History Previous Medical History?: Yes Hx Hypertension: Yes Hx Kidney Stones: Yes - Surgical History Past Surgical History?: Yes Additional Surgical History: LEFT KNEE SURGERY - Social History Smoking Status: Never Smoker Substance Use Type: None - Medications Home Medications: Home Medications Medication Instructions Recorded Confirmed Last Taken Type Ciprofloxacin HCl [Ciprofloxacin 500 mg PO Q12HR #20 tab 10/20/16 Unknown Rx TAB] Omeprazole Magnesium [PriLOSEC Otc] 20 mg PO BID #60 tab 10/20/16 Unknown Rx Ondansetron [Zofran Odt] 4 mg PO Q8HR PRN #15 tab.rapdis 10/20/16 Unknown Rx Tamsulosin [Flomax] 0.4 mg PO QDAY #30 cap 10/20/16 Unknown Rx metroNIDAZOLE [Flagyl] 500 mg PO Q12HR #20 tab 10/20/16 Unknown Rx traMADol [Ultram] 50 mg PO Q6HR PRN #24 tablet 10/20/16 Unknown Rx Potassium Chloride [K-Dur] 20 meq PO BID #6 tab 10/21/16 Unknown Rx Ibuprofen [Motrin] 600 mg PO Q8H PRN #15 tablet 10/31/16 Unknown Rx ED Physical Exam - General Limitations: No Limitations General appearance: alert, in no apparent distress - Head Head exam: Present: atraumatic, normocephalic - Eye Eye exam: Present: normal appearance - ENT ENT exam: Present: mucous membranes moist - Neck Neck exam: Present: normal inspection - Respiratory Respiratory exam: Present: normal lung sounds bilaterally. Absent: respiratory distress, wheezes, rales, rhonchi - Cardiovascular Cardiovascular Exam: Present: regular rate, normal rhythm, normal heart sounds. Absent: bradycardia, tachycardia, irregular rhythm, systolic murmur, diastolic murmur, rubs, gallop - GI/Abdominal GI/Abdominal exam: Present: soft, normal bowel sounds. Absent: distended, tenderness, guarding, rebound (no chest wall tenderness no pain currently) - Extremities Exam Extremities exam: Present: normal inspection - Back Exam Back exam: Present: normal inspection - Neurological Exam Neurological exam: Present: alert, oriented X3 - Psychiatric Psychiatric exam: Present: normal affect, normal mood - Skin Skin exam: Present: warm, dry, intact, normal color. Absent: rash ED Course Vital Signs 07/30/17 00:25 Temperature 98.3 F Pulse Rate 69 Respiratory 17 Rate Blood Pressure 139/102 O2 Sat by Pulse 99 Oximetry ERIC score - Eric Score Age > 65: (0) No Aspirin use within the Past 7 Days: (0) No 3 or more CAD Risk Factors: (0) No 2 or more Angina events in past 24 hrs: (0) No Known CAD with more than 50% Stenosis: (0) No Elevated Cardiac Markers: (0) No ST Deviation Greater than 0.5mm: (0) No ERIC Score: 0 ED Medical Decision Making - Lab Data Result diagrams: 07/30/17 00:32 07/30/17 00:32 Laboratory Results - last 24 hr 07/30/17 07/30/17 07/30/17 00:32 00:32 03:19 WBC 4.8 RBC 3.70 Hgb 11.2 Hct 33.4 MCV 90 MCH 30 MCHC 33 RDW 14.1 Plt Count 203 Lymph % (Auto) 42.5 H Williamson % (Auto) 10.0 H Eos % (Auto) 3.8 Baso % (Auto) 1.0 Lymph # 2.1 Williamson # 0.5 Eos # 0.2 Baso # 0.0 Seg Neutrophils % 42.7 Seg Neutrophils # 2.1 Sodium 141 Potassium 3.6 Chloride 105.0 Carbon Dioxide 22 Anion Gap 18 BUN 12 Creatinine 0.8 Estimated GFR > 60 BUN/Creatinine Ratio 15 Glucose 97 Calcium 8.4 Troponin T < 0.010 < 0.010 Urine HCG, Qual 07/30/17 07/30/17 05:57 09:47 WBC RBC Hgb Hct MCV MCH MCHC RDW Plt Count Lymph % (Auto) Williamson % (Auto) Eos % (Auto) Baso % (Auto) Lymph # Williamson # Eos # Baso # Seg Neutrophils % Seg Neutrophils # Sodium Potassium Chloride Carbon Dioxide Anion Gap BUN Creatinine Estimated GFR BUN/Creatinine Ratio Glucose Calcium Troponin T < 0.010 Urine HCG, Qual Negative Vital Signs - 24 hr 07/30/17 00:25 Temperature 98.3 F Pulse Rate 69 Respiratory 17 Rate Blood Pressure 139/102 O2 Sat by Pulse 99 Oximetry - EKG Data 07/30/17 10:23 NSR nl rate nl axis nl intervals no ST-T signs of ischemia no ST elevation rate 60 beats per minute - Medical Decision Making Ms. Chang presents with episodic chest pain. I strongly suspect that patient has PVCs due to hypovolemia and mild dehydration. I strongly suggested decreasing soda intake and increasing water intake. She' ll follow with her PCP within the next few weeks. Pain is atypical for DC or PE. Mitral valve prolapse is a consideration. Critical care attestation.: If time is entered above; I have spent that time in minutes in the direct care of this critically ill patient, excluding procedure time. ED Disposition Clinical Impression: PVCs (premature ventricular contractions), Dehydration Disposition: DC-01 TO HOME OR SELFCARE Is pt being admited?: No Does the pt Need Aspirin: No Condition: Stable Instructions: Premature Ventricular Contractions (ED), Dehydration (ED) Referrals: [facility] [Outside] - 3-5 Days Forms: Work/School Release Form(ED) Time of Disposition: 10:24
== END 2017-07-30 10:30 | disposition home or self-care (01) ==
LOC: ED 00:06
DX: I49.3 Ventricular premature depolarization (principal); E86.0 Dehydration; I10 Essential (primary) hypertension; Z87.442 Personal history of urinary calculi
CPT/HCPCS: 36415; 80048; 81025; 84484; 85025; 93005; 93010; 99284

== ENCOUNTER 2018-01-19 14:43 | Emergency (ER) | payer SELFPAY ==
[2018-01-19 14:58] VITALS: BP 135/93
--- NOTE | 2018-01-19 16:11 | Emergency Department Report ---
ED Upper Extremity Inj HPI - General Chief Complaint: Pain General Stated Complaint: RT HAND NUMB Time Seen by Provider: 01/19/18 15:48 Source: patient Mode of arrival: Ambulatory Limitations: No Limitations - History of Present Illness Initial Comments: 42-year-old female with complaints of right hand pain and numbness x1 day. Patient reports intermittent pain with movement of the hand and wrist. Also reports numbness to the dorsum and palmar surface hand and fingers, with mild swelling to hand and fingers of right hand. 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 She denies headache, slurred speech, facial droop, leg numbness or weakness. MD Complaint: Injury to:: right, hand -: days(s) (1) Handedness: right Improves With: none Worsens With: movement of extremity Context: other (unknown) Associated Symptoms: numbness. denies: weakness Treatments Prior to Arrival: NSAIDS - Related Data Previous Rx's Medication Instructions Recorded Last Taken Type Ciprofloxacin HCl [Ciprofloxacin 500 mg PO Q12HR #20 tab 10/20/16 Unknown Rx TAB] Omeprazole Magnesium [PriLOSEC Otc] 20 mg PO BID #60 tab 10/20/16 Unknown Rx Ondansetron [Zofran Odt] 4 mg PO Q8HR PRN #15 tab.rapdis 10/20/16 Unknown Rx Tamsulosin [Flomax] 0.4 mg PO QDAY #30 cap 10/20/16 Unknown Rx metroNIDAZOLE [Flagyl] 500 mg PO Q12HR #20 tab 10/20/16 Unknown Rx traMADol [Ultram] 50 mg PO Q6HR PRN #24 tablet 10/20/16 Unknown Rx Potassium Chloride [K-Dur] 20 meq PO BID #6 tab 10/21/16 Unknown Rx Ibuprofen [Motrin] 600 mg PO Q8H PRN #15 tablet 10/31/16 Unknown Rx Naproxen [Naprosyn] 500 mg PO BID #20 tablet 01/19/18 Unknown Rx predniSONE [Prednisone] 50 mg PO DAILY #5 tablet 01/19/18 Unknown Rx Allergies Allergy/AdvReac Type Severity Reaction Status Date / Time No Known Allergies Allergy Verified 07/01/17 10:04 ED Review of Systems ROS: Stated complaint: RT HAND NUMB Other details as noted in HPI Comment: All other systems reviewed and negative Musculoskeletal: joint swelling, arthralgia Neurological: numbness, paresthesias. denies: headache, weakness ED Past Medical Hx - Past Medical History Hx Hypertension: Yes Hx Kidney Stones: Yes - Surgical History Additional Surgical History: LEFT KNEE SURGERY - Social History Smoking Status: Never Smoker - Medications Home Medications: Home Medications Medication Instructions Recorded Confirmed Last Taken Type Ciprofloxacin HCl [Ciprofloxacin 500 mg PO Q12HR #20 tab 10/20/16 Unknown Rx TAB] Omeprazole Magnesium [PriLOSEC Otc] 20 mg PO BID #60 tab 10/20/16 Unknown Rx Ondansetron [Zofran Odt] 4 mg PO Q8HR PRN #15 tab.rapdis 10/20/16 Unknown Rx Tamsulosin [Flomax] 0.4 mg PO QDAY #30 cap 10/20/16 Unknown Rx metroNIDAZOLE [Flagyl] 500 mg PO Q12HR #20 tab 10/20/16 Unknown Rx traMADol [Ultram] 50 mg PO Q6HR PRN #24 tablet 10/20/16 Unknown Rx Potassium Chloride [K-Dur] 20 meq PO BID #6 tab 10/21/16 Unknown Rx Ibuprofen [Motrin] 600 mg PO Q8H PRN #15 tablet 10/31/16 Unknown Rx Naproxen [Naprosyn] 500 mg PO BID #20 tablet 01/19/18 Unknown Rx predniSONE [Prednisone] 50 mg PO DAILY #5 tablet 01/19/18 Unknown Rx ED Physical Exam - General Limitations: No Limitations General appearance: alert, in no apparent distress - Head Head exam: Present: atraumatic, normocephalic - Eye Eye exam: Present: normal appearance - ENT ENT exam: Present: mucous membranes moist - Neck Neck exam: Present: normal inspection, full ROM. Absent: tenderness - Respiratory Respiratory exam: Present: normal lung sounds bilaterally. Absent: respiratory distress - Cardiovascular Cardiovascular Exam: Present: normal rhythm, bradycardia - GI/Abdominal GI/Abdominal exam: Present: soft. Absent: tenderness - Extremities Exam Extremities exam: Present: other (RUE: trace edema to right hand, strength 5/5, cap refill nml, radial pulse strong, tingling sensation present, negative for Tinel's sign) - Neurological Exam Neurological exam: Present: alert, oriented X3, CN II-XII intact, motor sensory deficit (tingling senstaion in right hand) - Psychiatric Psychiatric exam: Present: normal affect, normal mood - Skin Skin exam: Present: warm, dry, intact, normal color ED Course Vital Signs 01/19/18 14:50 Temperature 97.9 F Pulse Rate 59 L Respiratory 18 Rate Blood Pressure 135/93 ED Medical Decision Making - Medical Decision Making 42-year-old female with right hand pain and numbness. Likely carpal tunnel syndrome. No signs of acute stroke. No weakness, no slurred speech, no facial droop, no involvement of remainder right arm or right leg. We will provide wrist splint and prescriptions for anti-inflammatory and steroids. Patient advised to follow up as an outpatient - Differential Diagnosis carpal tunnel syndrome, neuropathy, vasculitis Critical care attestation.: If time is entered above; I have spent that time in minutes in the direct care of this critically ill patient, excluding procedure time. ED Disposition Clinical Impression: Carpal tunnel syndrome of left wrist Disposition: - TO HOME OR SELFCARE Is pt being admited?: No Condition: Stable Instructions: Carpal Tunnel Syndrome (ED) Prescriptions: Naproxen [Naprosyn] 500 mg PO BID #20 tablet predniSONE [Prednisone] 50 mg PO DAILY #5 tablet Referrals: [facility] [Provider Group] - 3-5 Days [facility] [Outside] - 3-5 Days MARGARET HEREDIA MD [Staff Physician] - 3-5 Days Forms: Work/School Release Form(ED) Time of Disposition: 16:12
== END 2018-01-19 16:45 | disposition home or self-care (01) ==
LOC: ED 14:43
DX: G56.01 Carpal tunnel syndrome, right upper limb (principal); I10 Essential (primary) hypertension; Z87.442 Personal history of urinary calculi
CPT/HCPCS: 99283